=== PATIENT | female | born 1970 | race Asian ===

== ENCOUNTER 2018-08-31 10:14 | Outpatient (CLI) | payer OTHER ==
--- NOTE | 2018-08-31 11:41 | BD ---
BONE DENSITOMETRY USING DEXA: Date: 08/31/18 HISTORY: Postmenopausal screening for osteoporosis. FINDINGS: Lumbar Spine: BMD (g/cm2) L1 0.679 T-Score: -2.8 Z-Score: -2.2 L2 0.728 T-Score: -2.7 Z-Score: -2.0 L3 0.752 T-Score: -3.0 Z-Score: -2.2 L4 0.776 T-Score: -2.6 Z-Score: -1.8 L1-L4 0.736 T-Score: -2.8 Z-Score: -2.1 Femoral Neck: 0.627 T-Score: -2.0 Z-Score: -1.2 Total Femur: 0.791 T-Score: -1.2 Z-Score: -0.8 The 10 year fracture risk for a major osteoporotic fracture is 5.1% and for a hip fracture is 0.7%. IMPRESSION: Osteoporosis. POS: [facility]IME[facility]
== END 2018-08-31 10:15 | disposition home or self-care (01) ==
LOC: BICMAMMO 10:14
PROVIDERS: ATTEND Family Medicine
DX: Z78.0 Asymptomatic menopausal state (principal); Z00.00 Encounter for general adult medical examination without abnormal findings; M81.0 Age-related osteoporosis without current pathological fracture
CPT/HCPCS: 77063; 77067; 77080